=== PATIENT | female | born 1975 | race Caucasian/White ===

== ENCOUNTER 2023-02-09 09:00 | Outpatient (RCR) | payer BC, SELFPAY | END 2023-04-20 11:29 | disposition home or self-care (01) | LOC: HO.PT 09:00 | PROVIDERS: PCP Family Medicine; Visit Provider Obstetrics & Gynecology | DX: R35.0 Frequency of micturition (principal) | CPT/HCPCS: 97112; 97140; 97162 ==

== ENCOUNTER 2024-02-14 13:08 | Outpatient (RCR) | payer BC, SELFPAY | END 2024-03-14 10:51 | disposition home or self-care (01) | LOC: HO.PT 13:08 | PROVIDERS: PCP Family Medicine; Visit Provider Family Medicine | DX: M54.2 Cervicalgia (principal); M54.50 Low back pain, unspecified; M62.838 Other muscle spasm | CPT/HCPCS: 97110; 97140; 97161 ==